=== PATIENT | female | born 1975 | race Caucasian/White ===

== ENCOUNTER 2020-10-27 15:11 | Emergency (ER) | payer OTHER ==
[~2020-10-27] VITALS: Ht 170.2 cm; Wt 122.0 kg
[2020-10-27] MEDS ORDERED: CELEXA 20 MG TA20 MG PO (15:24)
[2020-10-27] MEDS ORDERED: PROAIR HFA8.5 GM INH (15:25)
[2020-10-27 16:38] VITALS: BP 174/70
== END 2020-10-27 16:38 | disposition home or self-care (01) ==
LOC: M.ERS 15:11
DX: S62.602A Fracture of unspecified phalanx of right middle finger, initial encounter for closed fracture (principal); S63.592A Other specified sprain of left wrist, initial encounter; J45.909 Unspecified asthma, uncomplicated; K21.9 Gastro-esophageal reflux disease without esophagitis; W10.8XXA Fall (on) (from) other stairs and steps, initial encounter; Y93.02 Activity, running; Y92.89 Other specified places as the place of occurrence of the external cause; Y99.8 Other external cause status

== ENCOUNTER 2020-11-28 09:59 | Emergency (ER) | payer OTHER ==
[~2020-11-28] VITALS: Ht 170.2 cm; Wt 120.2 kg
[~2020-11-28 09:59] MED LIST: CELEXA 20 MG TA20 MG PO; PROAIR HFA8.5 GM INH
[2020-11-28] MEDS ORDERED: OMEPRAZOLE 20 M20 M1 PO (10:13)
[2020-11-28] MEDS ORDERED: IBUPROFEN 800800 M1 PO (11:16)
[2020-11-28 11:44] VITALS: BP 170/88
== END 2020-11-28 11:49 | disposition home or self-care (01) ==
LOC: M.ERS 09:59
DX: S93.491A Sprain of other ligament of right ankle, initial encounter (principal); J45.909 Unspecified asthma, uncomplicated; K21.9 Gastro-esophageal reflux disease without esophagitis; W10.8XXA Fall (on) (from) other stairs and steps, initial encounter; Y93.89 Activity, other specified; Y92.89 Other specified places as the place of occurrence of the external cause; Y99.8 Other external cause status